=== PATIENT | male | born 1995 | race Caucasian/White ===

== ENCOUNTER 2021-02-19 12:00 | Emergency (ER) | payer OTHER ==
[~2021-02-19] VITALS: Ht 167.6 cm; Wt 70.3 kg
[2021-02-19 12:12] VITALS: BP 146/77
--- NOTE | 2021-02-19 12:15 | NUR ---
The patient bibs for having abcess on Right forearm xcouple days. Denies pain. Will continue to monitor the patient.
[2021-02-19] MEDS ORDERED: CEPH500C2 PO (12:26)
[2021-02-19] MEDS ORDERED: SULF1TAB48 PO (12:26)
[2021-02-19] MEDS ORDERED: CEPHALEXIN MONOHYDRATE 500 MG CAPSULE PO ONE ×2 (12:30→12:31)
[2021-02-19] MEDS ORDERED: SULFAMETH/TRIMETH 800/160 MG 1 UDTAB TABLET PO ONE (12:30)
[2021-02-19] MEDS ORDERED: SULFAMETH/TRIMETH 800/160 MG 1 UDTAB TABLET ONE (12:31)
--- NOTE | 2021-02-19 12:43 | NUR ---
Patient discharged to home in stable condition. Written and verbal after care instructions given. Patient verbalizes understanding of instruction.
== END 2021-02-19 12:43 | disposition home or self-care (01) ==
LOC: ER 12:11
DX: L03.113 Cellulitis of right upper limb (principal); L02.413 Cutaneous abscess of right upper limb; F17.200 Nicotine dependence, unspecified, uncomplicated
CPT/HCPCS: 99283; A6403; A6407

== ENCOUNTER 2021-08-06 15:22 | Emergency (ER) | payer OTHER ==
[~2021-08-06] VITALS: Ht 170.2 cm; Wt 68.0 kg
[~2021-08-06 15:22] MED LIST: CEPH500C2 PO; SULF1TAB48 PO
[2021-08-06 16:24] VITALS: BP 100/65
--- NOTE | 2021-08-06 16:24 | NUR ---
"I scraped my hand few days ago want to check and see if infected"
[2021-08-06] MEDS ORDERED: CEPH500C2 PO (17:39)
[2021-08-06] MEDS ORDERED: SULF1TAB48 PO (17:40)
--- NOTE | 2021-08-06 18:06 | NUR ---
Patient discharged to home in stable condition. Written and verbal after care instructions given. Patient verbalizes understanding of instruction.
== END 2021-08-06 18:07 | disposition home or self-care (01) ==
LOC: ER 15:28
DX: L03.113 Cellulitis of right upper limb (principal)